=== PATIENT | female | born 1975 | race Caucasian/White ===

== ENCOUNTER 2018-11-15 22:05 | Emergency (ER) | payer SELFPAY ==
[2018-11-15] MEDS ORDERED: IBUPROFEN PO ONE (23:37)
[2018-11-15] MEDS ORDERED: ZOFRAN ODT PO ONE (23:37)
[2018-11-15 23:39] LABS: Basophils # (Auto) 0.1 K/mm3 (0.0-0.1); Basophils % (Auto) 0.5 % (0.0-1.8); Eosinophils # (Auto) 0.8 K/mm3 (0.0-0.4); Eosinophils % (Auto) 5.2 % (0.0-4.3); Hematocrit 38.7 % (30.3-42.9); Hemoglobin 12.2 gm/dl (10.1-14.3); Lymphocytes # (Auto) 2.3 K/mm3 (1.2-5.4); Lymphocytes % (Auto) 13.8 % (13.4-35.0); Mean Corpuscular HGB Conc 32 % (30-34); Mean Corpuscular Volume 82 fl (79-97); Monocytes # (Auto) 0.7 K/mm3 (0.0-0.8); Monocytes % (Auto) 4.4 % (0.0-7.3); Platelet Count 275 K/mm3 (140-440); Red Blood Count 4.73 M/mm3 (3.65-5.03); Red Cell Distribution Width 15.6 % (13.2-15.2)
--- NOTE | 2018-11-15 23:40 | Emergency Department Report ---
ED General Adult HPI - General Chief complaint: Hypoglycemia Stated complaint: COLD SX LOW BLOOD GLUCOSE Time Seen by Provider: 11/15/18 23:13 Source: patient Mode of arrival: Ambulatory Limitations: Language Barrier - History of Present Illness Initial comments: Mrs. Mathews is a 43 yo female with hx of DM who presents with headache, generalized abdominal pain, chills, vomiting for one day. Moderate symptoms. +sick contacts. -: Gradual, days(s) (1) Location: head Severity scale (0 -10): 10 Quality: aching, other (cramping) Improves with: none Worsens with: none Associated Symptoms: nausea/vomiting - Related Data Previous Rx's Medication Instructions Recorded Last Taken Type Ondansetron [Zofran Odt] 4 mg PO Q8HR PRN #6 tab.rapdis 11/16/18 Unknown Rx Oseltamivir Phosphate [Tamiflu] 75 mg PO BID 5 Days #10 capsule 11/16/18 Unknown Rx Allergies Allergy/AdvReac Type Severity Reaction Status Date / Time No Known Allergies Allergy Unverified 11/15/18 22:08 ED Review of Systems ROS: Stated complaint: COLD SX LOW BLOOD GLUCOSE Other details as noted in HPI Comment: All other systems reviewed and negative Constitutional: chills, fever, malaise Gastrointestinal: nausea, vomiting ED Past Medical Hx - Past Medical History Previous Medical History?: Yes Hx Diabetes: Yes - Surgical History Past Surgical History?: No - Social History Smoking Status: Never Smoker Substance Use Type: None - Medications Home Medications: Home Medications Medication Instructions Recorded Confirmed Last Taken Type Ondansetron [Zofran Odt] 4 mg PO Q8HR PRN #6 tab.rapdis 11/16/18 Unknown Rx Oseltamivir Phosphate [Tamiflu] 75 mg PO BID 5 Days #10 capsule 11/16/18 Unknown Rx ED Physical Exam - General Limitations: Language Barrier (family member niece provided interpretation) General appearance: alert, in no apparent distress - Head Head exam: Present: atraumatic, normocephalic - Eye Eye exam: Present: normal appearance - ENT ENT exam: Present: mucous membranes moist - Neck Neck exam: Present: normal inspection, full ROM. Absent: tenderness, meningismus - Respiratory Respiratory exam: Present: normal lung sounds bilaterally. Absent: respiratory distress, wheezes, rales, rhonchi - Cardiovascular Cardiovascular Exam: Present: regular rate, normal rhythm, normal heart sounds. Absent: systolic murmur, diastolic murmur, rubs, gallop - GI/Abdominal GI/Abdominal exam: Present: soft, normal bowel sounds. Absent: distended, tenderness, guarding, rebound - Extremities Exam Extremities exam: Present: normal inspection - Back Exam Back exam: Present: normal inspection - Neurological Exam Neurological exam: Present: alert, oriented X3 - Psychiatric Psychiatric exam: Present: normal affect, normal mood - Skin Skin exam: Present: warm, dry, intact, normal color. Absent: rash ED Course Vital Signs 11/15/18 11/15/18 11/16/18 22:14 23:32 00:00 Temperature 97.7 F 98.3 F Pulse Rate 81 82 Respiratory 16 19 Rate Blood Pressure 154/94 145/93 Blood Pressure 147/82 [Left] O2 Sat by Pulse 100 99 99 Oximetry 11/16/18 11/16/18 01:00 02:00 Temperature Pulse Rate Respiratory Rate Blood Pressure 120/73 113/73 Blood Pressure [Left] O2 Sat by Pulse 99 98 Oximetry ED Medical Decision Making - Lab Data Result diagrams: 11/15/18 23:21 11/15/18 23:21 - Radiology Data Radiology results: report reviewed CT head without acute process CT abdomen and pelvis 4 cm right-sided adnexal mass likely ovarian cyst - Medical Decision Making Clinical diagnosis: Influenza, Elevated white count prompted further evaluation. CT abdomen and pelvis unremarkable for right adnexal mass likely sepsis given referral to [facility] Prescribed Tamiflu Zofran Critical care attestation.: If time is entered above; I have spent that time in minutes in the direct care of this critically ill patient, excluding procedure time. ED Disposition Clinical Impression: Influenza, Ovarian cyst Disposition: - TO HOME OR SELFCARE Is pt being admited?: No Does the pt Need Aspirin: No Condition: Stable Instructions: Influenza (ED), Ovarian Cyst (ED) Prescriptions: Ondansetron [Zofran Odt] 4 mg PO Q8HR PRN #6 tab.rapdis PRN Reason: nausea/vomiting Oseltamivir Phosphate [Tamiflu] 75 mg PO BID 5 Days #10 capsule Referrals: KATE ANGELO MD [Staff Physician] - 3-5 Days Print Language: BENGALI
[2018-11-16 00:05] LABS: Alanine Aminotransferase 19 units/L (7-56); BUN/Creatinine Ratio 17; Blood Urea Nitrogen 10 mg/dL (7-17); Calcium 9.3 mg/dL (8.4-10.2); Hemolysis Index 4
[2018-11-16] MEDS ORDERED: TAMIFLU PO ONE (00:07)
[2018-11-16] MEDS ORDERED: MORPHINE IV ONE (00:13)
[2018-11-16] MEDS ORDERED: NACL 0.9% 1000 ML 1,000 ML IV ONE (00:13)
[2018-11-16] MEDS: ZOFRAN IV ONE (00:27)
[2018-11-16 00:28] LABS: Bilirubin,Urine NEG (Negative); Blood,Urine SM (Negative); Color,Urine Yellow (Yellow); Mucus,Urine FEW /HPF; Urobilinogen,Urine < 2.0 mg/dL (<2.0)
--- NOTE | 2018-11-16 03:05 | Cat Scan Report ---
FINAL REPORT PROCEDURE: CT HEAD/BRAIN WO CON TECHNIQUE: Computerized tomography of the head was performed without contrast material. HISTORY: headache COMPARISON: No prior studies are available for comparison. FINDINGS: Skull and scalp: Normal. Paranasal sinuses: Normal. Ventricles and subarachnoid spaces: Normal. Cerebrum: No evidence of hemorrhage, acute infarction or mass . Cerebellum and brainstem: No evidence of hemorrhage, acute infarction or mass. Vasculature: Normal. Comments: None. IMPRESSION: Normal Examination
--- NOTE | 2018-11-16 03:07 | Cat Scan Report ---
FINAL REPORT PROCEDURE: CT ABDOMEN PELVIS W CON TECHNIQUE: Computerized axial tomography of the abdomen and pelvis was performed after the IV inject ion of iodinated nonionic contrast. HISTORY: abdominal pain COMPARISON: No prior studies are available for comparison. FINDINGS: Visualized lower thorax: No significant abnormality. Liver: Normal size and attenuation. Spleen: Normal size and attenuation. Gallbladder and biliary system: Normal. Pancreas: Normal. Adrenals: Normal. Kidneys: Normal. GI tract: There is no bowel obstruction, colitis or enteritis. The appendix is normal.. Lymph nodes and mesentery: Normal. Vasculature: Normal. Bladder: Normal. Reproductive organs: Uterus is unremarkable. There is a 4.2 centimeter mass in the right adnexal donna on which could be enlarged ovary with hemorrhagic cysts. Further evaluation with ultrasound may be he lpful if indicated.. Peritoneum: There is no ascites or free air, abscess or adenopathy.. Musculoskeletal structures: No significant abnormality. Other: None. IMPRESSION: There is no bowel obstruction, colitis or enteritis. The appendix is normal.. Uterus is unremarkable. There is a 4.2 centimeter mass in the right adnexal region which could be enl arged ovary with hemorrhagic cysts. Further evaluation with ultrasound may be helpful if indicated.. There is no ascites or free air, abscess or adenopathy..
[2018-11-16 03:32] VITALS: BP 113/73
== END 2018-11-16 04:08 | disposition home or self-care (01) ==
LOC: ED 22:05
DX: J11.1 Influenza due to unidentified influenza virus with other respiratory manifestations (principal); N83.209 Unspecified ovarian cyst, unspecified side; E11.9 Type 2 diabetes mellitus without complications
CPT/HCPCS: 36415; 70450; 74177; 80053; 81001; 82962; 83690; 84702; 85025; 96361; 96374; 96375; 99284; J2270; J2405; J7030; Q9967

== ENCOUNTER 2019-09-11 16:18 | Emergency (ER) | payer SELFPAY ==
--- NOTE | 2019-09-11 16:35 | Emergency Department Report ---
Blank Doc - Documentation Documentation: 44-year-old female that presents with flank pain with hematuria and dysuria. This initial assessment/diagnostic orders/clinical plan/treatment(s) is/are subject to change based on patient's health status, clinical progression and re- assessment by fellow clinical providers in the ED. Further treatment and workup at subsequent clinical providers discretion. Patient/guardians urged not to elope from the ED as their condition may be serious if not clinically assessed and managed. Initial orders include: 1- Patient sent to [facility] for further evaluation and treatment 2- UA
[2019-09-11 16:37] VITALS: BP 122/67
[2019-09-11 17:10] LABS: HCG Qualitative,Urine Positive (Negative)
[2019-09-11 17:26] LABS: Bacteria,Urine 1+ /HPF (Negative); Bilirubin,Urine NEG (Negative); Blood,Urine MOD (Negative); Color,Urine Straw (Yellow); Mucus,Urine FEW /HPF; Protein,Urine <15 mg/dL mg/dL (Negative); Urobilinogen,Urine < 2.0 mg/dL (<2.0)
--- NOTE | 2019-09-11 17:55 | Emergency Department Report ---
ED Female HPI - General Chief complaint: Urogenital-Female Stated complaint: LOWER BACK PAIN/FEVER Time Seen by Provider: 09/11/19 16:33 Source: patient, family Mode of arrival: Ambulatory Limitations: Language Barrier (speaks Tajik) - History of Present Illness Initial comments: Porter Head present This is a 44 year old patient that does not speak Botswanan therefore truss designer present. She reports that she has painful urination and with bloody urine 3 days. She also reports that she has bilateral lower back pain. She reports chills but did not take her temperature. Denies any nausea or vomiting. Last menstrual period was in August per patient 08/18/2019. Denies any abdominal pain. Denies any shortness of breath or chest pain. Denies any swelling to her legs. Pain is 10 out of 10 to lower back and achy. It is constant and all eviated with rest but worse with movement. Denies taking any medication. Denies any vaginal discharge or concern for STDs. MD Complaint: dysuria, other (lateral lower back pain and bloody urine 3 days. ) Onset/Timin -: days(s) Location: other (back, bilateral) Radiation: non-radiating Severity: severe Severity scale (0 -10): 10 Quality: aching Consistency: constant Improves with: other (rest) Worsens with: movement Are you Now?: No Last Menstrual Period: 08/18/19 EDC: 05/24/20 Associated Symptoms: fever/chills, dysuria, hematuria. denies: vaginal discharge, vaginal bleeding, abdominal pain, nausea/vomiting, headaches, loss of appetite, rash, seizure, shortness of breath, syncope, weakness - Related Data Sexually active: Yes Previous Rx's Medication Instructions Recorded Last Taken Type Ondansetron [Zofran Odt] 4 mg PO Q8HR PRN #6 tab.rapdis 11/16/18 Unknown Rx Oseltamivir Phosphate [Tamiflu] 75 mg PO BID 5 Days #10 capsule 11/16/18 Unknown Rx Acetaminophen [Acetaminophen TAB] 500 mg PO Q8H PRN #12 tablet 09/11/19 Unknown Rx Nitrofurantoin [place]/M-Cryst 100 mg PO Q12HR 7 Days #14 capsule 09/11/19 Unknown Rx [Macrobid CAP] Vit-Fe Fumar-FA [ 1 tab PO QDAY #30 tablet 09/11/19 Unknown Rx Vitamin] Allergies Allergy/AdvReac Type Severity Reaction Status Date / Time No Known Allergies Allergy Unverified 11/15/18 22:08 ED Review of Systems ROS: Stated complaint: LOWER BACK PAIN/FEVER Other details as noted in HPI Constitutional: chills Eyes: denies: eye discharge Respiratory: denies: cough, shortness of breath, wheezing Cardiovascular: denies: chest pain, palpitations, dyspnea on exertion, edema, syncope Gastrointestinal: denies: nausea, vomiting, hematemesis, hematochezia Genitourinary: dysuria, hematuria. denies: urgency, frequency, discharge, a bnormal menses, dyspareunia Musculoskeletal: back pain. denies: joint swelling, myalgia Skin: denies: rash Neurological: denies: headache, numbness, vertigo ED Past Medical Hx - Past Medical History Previous Medical History?: Yes Hx Diabetes: Yes - Surgical History Past Surgical History?: Yes Additional Surgical History: x 1 - Family History Family history: diabetes, hypertension - Social History Smoking Status: Never Smoker Substance Use Type: None - Medications Home Medications: Home Medications Medication Instructions Recorded Confirmed Last Taken Type Ondansetron [Zofran Odt] 4 mg PO Q8HR PRN #6 tab.rapdis 11/16/18 Unknown Rx Oseltamivir Phosphate [Tamiflu] 75 mg PO BID 5 Days #10 capsule 11/16/18 Unknown Rx Acetaminophen [Acetaminophen TAB] 500 mg PO Q8H PRN #12 tablet 09/11/19 Unknown Rx Nitrofurantoin [place]/M-Cryst 100 mg PO Q12HR 7 Days #14 capsule 09/11/19 Unknown Rx [Macrobid CAP] Vit-Fe Fumar-FA [ 1 tab PO QDAY #30 tablet 09/11/19 Unknown Rx Vitamin] ED Physical Exam - General Limitations: No Limitations General appearance: alert, in no apparent distress - Head Head exam: Present: atraumatic, normocephalic - Eye Eye exam: Present: normal appearance, PERRL, EOMI Pupils: Present: normal accommodation - ENT ENT exam: Present: normal exam, normal orophraynx, mucous membranes moist - Neck Neck exam: Present: normal inspection, full ROM. Absent: tenderness, ly mphadenopathy - Respiratory Respiratory exam: Present: normal lung sounds bilaterally. Absent: respiratory distress, chest wall tenderness - Cardiovascular Cardiovascular Exam: Present: regular rate, normal rhythm, normal heart sounds. Absent: systolic murmur, diastolic murmur - GI/Abdominal GI/Abdominal exam: Present: soft, normal bowel sounds. Absent: distended, tenderness, organomegaly, mass, bruit, pulsatile mass, hernia - External exam: Present: normal external exam. Absent: erythema, swelling, lesions, lacerations, ecchymosis, bleeding - Extremities Exam Extremities exam: Present: normal inspection, full ROM, normal capillary refill, other (No cce. + 2 pulses in all extremities, no neurovascular compromise). Absent: tenderness, pedal edema, joint swelling, calf tenderness - Back Exam Back exam: Present: normal inspection, full ROM, other (Ambulates without any difficulties). Absent: tenderness, CVA tenderness (R), CVA tenderness (L), mus samm spasm, paraspinal tenderness, vertebral tenderness, rash noted - Neurological Exam Neurological exam: Present: alert, oriented X3, normal gait - Psychiatric Psychiatric exam: Present: normal affect, normal mood - Skin Skin exam: Present: warm, dry, intact, normal color. Absent: rash ED Course Vital Signs 09/11/19 16:36 Temperature 98.3 F Pulse Rate 95 H Respiratory 18 Rate Blood Pressure 122/67 O2 Sat by Pulse 100 Oximetry - Reevaluation(s) Reevaluation #1: Porter Head present 09/11/19 19:55 Patient stable throughout ED course. I spoke with Dr. Howell regarding patient diabetic status and that she has glycosuria and her serum glucose is 283. Okay for patient to get insulin. Patient received insulin 4 units subcutaneous and she was advised via truss designer. She also receive Rocephin 1 g IM to cover UTI and will be discharged home at antibiotic, vitamin. It is agreed upon the patient will not take metformin during and that she needs to stop and she is in agreement. I explained to patient her lab results, status, ultrasound report, diagnosis of urinary tract infection, glucose in her urine and elevated blood sugar and she voiced understanding. I also discussed with her that she needs to increase her water intake and decrease starchy food and sweets. I instructed her that she needs to go to her clinic for primary care for management of diabetes and needs to start on insulin rather than metformin and she voiced understanding. Patient had no reaction from Rocephin IM. ED Medical Decision Making - Lab Data Result diagrams: 09/11/19 18:00 09/11/19 18:00 Lab Results 09/11/19 09/11/19 09/11/19 Range/Units 16:50 18:00 18:00 WBC 12.4 H (4.5-11.0) K/mm3 RBC 5.03 (3.65-5.03) M/mm3 Hgb 13.5 (10.1-14.3) gm/dl Hct 41.4 (30.3-42.9) % MCV 82 (79-97) fl MCH 27 L (28-32) pg MCHC 33 (30-34) % RDW 14.9 (13.2-15.2) % Plt Count 283 (140-440) K/mm3 Lymph % (Auto) 21.4 (13.4-35.0) % [place] % (Auto) 6.0 (0.0-7.3) % Eos % (Auto) 8.8 H (0.0-4.3) % Baso % (Auto) 0.4 (0.0-1.8) % Lymph # 2.7 (1.2-5.4) K/mm3 [place] # 0.8 (0.0-0.8) K/mm3 Eos # 1.1 H (0.0-0.4) K/mm3 Baso # 0.0 (0.0-0.1) K/mm3 Seg Neutrophils % 63.4 (40.0-70.0) % Seg Neutrophils # 7.9 H (1.8-7.7) K/mm3 Sodium 136 L (137-145) mmol/L Potassium 4.1 (3.6-5.0) mmol/L Chloride 100.1 (98-107) mmol/L Carbon Dioxide 19 L (22-30) mmol/L Anion Gap 21 mmol/L BUN 7 (7-17) mg/dL Creatinine 0.6 L (0.7-1.2) mg/dL Estimated GFR > 60 ml/min BUN/Creatinine Ratio 12 % Glucose 283 H (65-100) mg/dL Calcium 9.7 (8.4-10.2) mg/dL Urine Color Straw (Yellow) Urine Turbidity Slightly-cloudy (Clear) Urine pH 6.0 (5.0-7.0) Ur Specific [place] 1.008 (1.003-1.030) Urine Protein <15 mg/dl (Negative) mg/dL Urine Glucose (UA) >=500 (Negative) mg/dL Urine Ketones Tr (Negative) mg/dL Urine Blood Mod (Negative) Urine Nitrite Neg (Negative) Ur Reducing Substances Not Reportable Urine Bilirubin Neg (Negative) Urine Ictotest Not Reportable Urine Urobilinogen < 2.0 (<2.0) mg/dL Ur Leukocyte Esterase Lg (Negative) Urine WBC (Auto) 16.0 H (0.0-6.0) /HPF Urine RBC (Auto) 7.0 (0.0-6.0) /HPF U Epithel Cells (Auto) 7.0 (0-13.0) /HPF Urine Bacteria (Auto) 1+ (Negative) /HPF Urine Mucus Few /HPF Urine HCG, Qual Positive A (Negative) Blood Type Antibody Screen 09/11/19 Range/Units 18:00 WBC (4.5-11.0) K/mm3 RBC (3.65-5.03) M/mm3 Hgb (10.1-14.3) gm/dl Hct (30.3-42.9) % MCV (79-97) fl MCH (28-32) pg MCHC (30-34) % RDW (13.2-15.2) % Plt Count (140-440) K/mm3 Lymph % (Auto) (13.4-35.0) % [place] % (Auto) (0.0-7.3) % Eos % (Auto) (0.0-4.3) % Baso % (Auto) (0.0-1.8) % Lymph # (1.2-5.4) K/mm3 [place] # (0.0-0.8) K/mm3 Eos # (0.0-0.4) K/mm3 Baso # (0.0-0.1) K/mm3 Seg Neutrophils % (40.0-70.0) % Seg Neutrophils # (1.8-7.7) K/mm3 Sodium (137-145) mmol/L Potassium (3.6-5.0) mmol/L Chloride (98-107) mmol/L Carbon Dioxide (22-30) mmol/L Anion Gap mmol/L BUN (7-17) mg/dL Creatinine (0.7-1.2) mg/dL Estimated GFR ml/min BUN/Creatinine Ratio % Glucose (65-100) mg/dL Calcium (8.4-10.2) mg/dL Urine Color (Yellow) Urine Turbidity (Clear) Urine pH (5.0-7.0) Ur Specific [place] (1.003-1.030) Urine Protein (Negative) mg/dL Urine Glucose (UA) (Negative) mg/dL Urine Ketones (Negative) mg/dL Urine Blood (Negative) Urine Nitrite (Negative) Ur Reducing Substances Urine Bilirubin (Negative) Urine Ictotest Urine Urobilinogen (<2.0) mg/dL Ur Leukocyte Esterase (Negative) Urine WBC (Auto) (0.0-6.0) /HPF Urine RBC (Auto) (0.0-6.0) /HPF U Epithel Cells (Auto) (0-13.0) /HPF Urine Bacteria (Auto) (Negative) /HPF Urine Mucus /HPF Urine HCG, Qual (Negative) Blood Type O POSITIVE Antibody Screen Negative Urine culture sent - Radiology Data Radiology results: report reviewed Ultrasound OB transvaginal and transabdominal dictated by radiologist and report reviewed by myself. Please see report below Findings [facility] [address] [place] [address] Ultrasound Report Signed Patient: HOLLIE COULTER MR#: [id number] : 1975 Acct:[id number] Age/Sex: 44 / F ADM Date: 09/11/19 Loc: ED Attending Dr: Ordering Physician: JEMAL HOLGUIN Date of Service: 09/11/19 Procedure(s): US OB <= 14 weeks fetus Accession Number(s): [id number] cc: JEMAL HOLGUIN US OB <= 14 weeks fetus, US OB transvaginal INDICATION: with abdominal pain. TECHNIQUE: Transvaginal OB ultrasound. COMPARISON: None available. FINDINGS: There is a single living intrauterine with crown-rump length of 13 mm that corresponds to sonographic gestational age of 7 weeks and 4 days. heart rate measures 161 bpm. Both ovaries appear normal. IMPRESSION: 1. Living intrauterine with sonographic gestational age of 7 weeks, 4 days. Signer Name: Marty Baron MD Signed: 09/11/2019 6:49 PM Workstation Name: [id number] Transcribed By: RICHARD Dictated By: Marty Baron MD Electronically Authenticated By: Marty Baron MD Signed Date/Time: 09/11/191848 DD/ 47 TD/TT: Findings [facility] [address] [place] [address] Ultrasound Report Signed Patient: HOLLIE COULTER MR#: [id number] : 1975 Acct:[id number] Age/Sex: 44 / F ADM Date: 09/11/19 Loc: ED Attending Dr: Ordering Physician: JEMAL HOLGUIN Date of Service: 09/11/19 Procedure(s): US OB transvaginal Accession Number(s): [id number] cc: JEMAL HOLGUIN US OB <= 14 weeks fetus, US OB transvaginal INDICATION: with abdominal pain. TECHNIQUE: Transvaginal OB ultrasound. COMPARISON: None available. FINDINGS: There is a single living intrauterine with crown-rump length of 13 mm that corresponds to sonographic gestational age of 7 weeks and 4 days. heart rate measures 161 bpm. Both ovaries appear normal. IMPRESSION: 1. Living intrauterine with sonographic gestational age of 7 weeks, 4 days. Signer Name: Marty Baron MD Signed: 09/11/2019 6:49 PM Workstation Name: [id number] Transcribed By: RICHARD Dictated By: Marty Baron MD Electronically Authenticated By: Marty Baron MD Signed Date/Time: 09/11/191848 DD/ 47 TD/TT: - Medical Decision Making Porter Head present. Initially I spoke with Dr. Loaiza regarding patient presentation and physical findings and prior to discharge I spoke with Dr. Geoff Howell with attending physician in emergency room regarding patient's labs, diagnosis, diabetic status and he agrees the patient can be discharged home to follow up with clinic tomorrow for them to change her metformin to insulin. Patient received 4 units of insulin and emergency room to cover hyperglycemia in type 2 diabetes and Rocephin 1 g IM to cover UTI. Patient is aware that she needs a note to her primary care clinic tomorrow as she says she can walk in and let her doctor knows that she is and that she needs to be started in a different medication for her as she cannot be on metformin during and she voiced understanding via truss designer. She is aware that she needs to increase her fluid intake and that she has a urinary tract infection that she got 1 g of Rocephin in the emergency room IM and will be placed on Macrobid by mouth and she is aware that she needs to take this medication. She also is aware that she can take Tylenol for pain and/or fever and that if she develops increased pain, fever, nausea and vomiting, abdominal pain, vaginal bleed and that she is to return to the emergency room ELLIS and she voiced understanding via truss designer. She is aware that she is 7 weeks and 4 days IUP with heart rate stable. She voiced understanding via truss designer. Patient is stable and in no acute distress at present. Discharged home a prescription for Macrobid and Tylenol and she is also aware that she needs to call [facility] office tomorrow to schedule an appointment which is likely cycle was of call for visit. She was given prescription for vitamin. She also voices understanding of need to take medication. Patient is currently stable and she is in no pain at present. Discharged home with her in stable condition to follow up with primary care to manage diabetes in and [facility] for care. I gave her information on how to apply for Medicaid and she voices understanding. - Differential Diagnosis pyelonephritis, ectopic , fibroids, ovarian cysts, UTI Critical care attestation.: If time is entered above; I have spent that time in minutes in the direct care of this critically ill patient, excluding procedure time. ED Disposition Clinical Impression: Acute cystitis during in first trimester, Glycosuria during , not delivered, Back pain during in first trimester, Hyperglycemia in Disposition: DC-01 TO HOME OR SELFCARE Is pt being admited?: No Does the pt Need Aspirin: No Condition: Stable Instructions: Diabetic Hyperglycemia (ED), Urinary Tract Infection in Women (ED), Dysuria (ED), How to Check Your Blood Sugar (ED), Vitamins (By mouth), (ED), Meal Planning with Diabetes Exchanges (DC) Additional Instructions: Please follow-up with your primary care clinic to manage type 2 diabetes and . Stop taking metformin Please keep hydrated with at least 2-3 L of water daily. Please follow diabetic diet Read discharge instruction paperwork and its entirety and take ultrasound report along with discharge information with you to primary care and [facility] visit Take Macrobid for urinary tract infection Tylenol for pain or fever Start taking vitamin If you develop vaginal bleeding, abdominal or back pain, increased nausea vomiting , fever or chills, please return to emergency room therapy Nathalia un seguimiento con fontana clnica de atencin primaria para controlar la diabetes tipo 2 y el embarazo. Deje de eliot metformina Mantngase hidratado con al menos 2-3 L de agua al da. Por favor, siga la dieta para diabticos Mellissa la documentacin de instrucciones de azalea y fontana totalidad y lleve el informe de ultrasonido junto con la informacin de azalea con usted a la atencin primaria y a la visita de obstetra / gineclogo [place] Macrobid para la infeccin del tracto urinario Tylenol para dolor o fiebre Comience a eliot vitamina Si desarrolla sangrado vaginal, dolor abdominal o de espalda, aumento de nuseas, vmitos, fiebre o escalofros, regrese a la antonio de emergencias. Referrals: please follow-up with your, primary care physician [Other] - 09/12/19 BRIAN VICK MD [Staff Physician] - 09/13/19 Forms: Accompanied Note, Work/School Release Form(ED) Print Language: ICELANDIC
[2019-09-11 18:22] LABS: Basophils % (Auto) 0.4 % (0.0-1.8); Eosinophils # (Auto) 1.1 K/mm3 (0.0-0.4); Eosinophils % (Auto) 8.8 % (0.0-4.3); Hematocrit 41.4 % (30.3-42.9); Hemoglobin 13.5 gm/dl (10.1-14.3); Lymphocytes # (Auto) 2.7 K/mm3 (1.2-5.4); Lymphocytes % (Auto) 21.4 % (13.4-35.0); Mean Corpuscular HGB Conc 33 % (30-34); Mean Corpuscular Volume 82 fl (79-97); Monocytes # (Auto) 0.8 K/mm3 (0.0-0.8); Platelet Count 283 K/mm3 (140-440); Red Blood Count 5.03 M/mm3 (3.65-5.03); Red Cell Distribution Width 14.9 % (13.2-15.2)
[2019-09-11 18:46] LABS: BUN/Creatinine Ratio 12; Blood Urea Nitrogen 7 mg/dL (7-17); Calcium 9.7 mg/dL (8.4-10.2); Hemolysis Index 3
--- NOTE | 2019-09-11 18:53 | Ultrasound Report ---
US OB <= 14 weeks fetus, US OB transvaginal INDICATION: with abdominal pain. TECHNIQUE: Transvaginal OB ultrasound. COMPARISON: None available. FINDINGS: There is a single living intrauterine with crown-rump length of 13 mm that corresponds to s onographic gestational age of 7 weeks and 4 days. heart rate measures 161 bpm. Both ovaries appear normal. IMPRESSION: 1. Living intrauterine with sonographic gestational age of 7 weeks, 4 days. Signer Name: Marty Baron MD Signed: 09/11/2019 6:49 PM Workstation Name: [id number]
[2019-09-11] MEDS ORDERED: INSULIN REGULAR, HUMAN 100 UNITS/1 ML SUB-Q ONE (19:27)
[2019-09-11] MEDS ORDERED: LIDOCAINE-MPF (1%) 10 MG/1 ML VIAL 5 ML INFILTRATI ONE (19:27)
== END 2019-09-11 20:53 | disposition home or self-care (01) ==
LOC: ED 16:18
DX: O23.11 Infections of bladder in pregnancy, first trimester (principal); O26.891 Other specified pregnancy related conditions, first trimester; R81 Glycosuria; M54.5 Low back pain; O24.111 Pre-existing type 2 diabetes mellitus, in pregnancy, first trimester; Z98.890 Other specified postprocedural states; Z79.899 Other long term (current) drug therapy
CPT/HCPCS: 36415; 76801; 76817; 80048; 81001; 81025; 84702; 85025; 86850; 86900; 86901; 87076; 87086; 87186; 96372; 99284; J0696; J1815

== ENCOUNTER 2019-12-09 19:40 | Emergency (ER) | payer SELFPAY ==
--- NOTE | 2019-12-09 21:41 | Event Note ---
ED Screening Note ED Screening Note: Pt presents with lower back discomfort +dysuria +vaginal discharge no abd pain no vaginal bleeding PMHx DM no allergies to meds LNMP 10/07/19 /P:3/A:0 she has seen OB for this This initial assessment/diagnostic orders/clinical plan/treatment(s) is/are subject to change based on patients health status, clinical progression and re- assessment by fellow clinical providers in the ED. Further treatment and workup at subsequent clinical providers discretion. Patient/guardian urged not to elope from the ED as their condition may be serious if not clinically assessed and managed. Initial orders include: ua
[2019-12-09 21:43] VITALS: BP 140/77
[2019-12-09] MEDS ORDERED: SODIUM CHLORIDE 0.9% 1000 ML 1,000 ML IV ONE (22:01)
--- NOTE | 2019-12-09 22:04 | Emergency Department Report ---
ED HPI - General Chief complaint: Abdominal Pain Stated complaint: 16 WEEKS ABDOMINAL PAIN Time Seen by Provider: 12/09/19 21:36 Source: patient, family Mode of arrival: Ambulatory Limitations: Language Barrier - History of Present Illness Initial comments: This is a 44-year-old currently about approximately 16 weeks gestation who presents the ED complaining of left-sided flank pain times a couple of days. Patient states she sees [facility]OD ST[facility] MANAGER regularly cannot recall name of office. Patient denies fever/chills/nausea vomiting/dysuria/vaginal bleed/abdominal pain MD Complaint: abdominal pain Location: flank (Right) - Related Data Previous Rx's Medication Instructions Recorded Last Taken Type Ondansetron [Zofran Odt] 4 mg PO Q8HR PRN #6 tab.rapdis 11/16/18 Unknown Rx Oseltamivir Phosphate [Tamiflu] 75 mg PO BID 5 Days #10 capsule 11/16/18 Unknown Rx Acetaminophen [Acetaminophen TAB] 500 mg PO Q8H PRN #12 tablet 09/11/19 Unknown Rx Vit-Fe Fumar-FA [ 1 tab PO QDAY #30 tablet 09/11/19 Unknown Rx Vitamin] Nitrofurantoin [place]/M-Cryst 100 mg PO Q12HR 7 Days #14 capsule 12/09/19 Unknown Rx [Macrobid CAP] Allergies Allergy/AdvReac Type Severity Reaction Status Date / Time No Known Allergies Allergy Unverified 11/15/18 22:08 ED Review of Systems ROS: Stated complaint: 16 WEEKS ABDOMINAL PAIN Other details as noted in HPI Comment: All other systems reviewed and negative ED Past Medical Hx - Past Medical History Previous Medical History?: Yes Hx Diabetes: Yes - Surgical History Past Surgical History?: Yes Additional Surgical History: x 1 - Social History Smoking Status: Never Smoker Substance Use Type: None - Medications Home Medications: Home Medications Medication Instructions Recorded Confirmed Last Taken Type Ondansetron [Zofran Odt] 4 mg PO Q8HR PRN #6 tab.rapdis 11/16/18 Unknown Rx Oseltamivir Phosphate [Tamiflu] 75 mg PO BID 5 Days #10 capsule 11/16/18 Unknown Rx Acetaminophen [Acetaminophen TAB] 500 mg PO Q8H PRN #12 tablet 09/11/19 Unknown Rx Vit-Fe Fumar-FA [ 1 tab PO QDAY #30 tablet 09/11/19 Unknown Rx Vitamin] Nitrofurantoin [place]/M-Cryst 100 mg PO Q12HR 7 Days #14 capsule 12/09/19 Unknown Rx [Macrobid CAP] ED Physical Exam - General Limitations: Language Barrier General appearance: alert, in no apparent distress - Head Head exam: Present: atraumatic, normocephalic - Eye Eye exam: Present: normal appearance - ENT ENT exam: Present: mucous membranes moist - Neck Neck exam: Present: normal inspection - Respiratory Respiratory exam: Present: normal lung sounds bilaterally. Absent: respiratory distress - Cardiovascular Cardiovascular Exam: Present: regular rate, normal rhythm. Absent: systolic murmur, diastolic murmur, rubs, gallop - GI/Abdominal GI/Abdominal exam: Present: soft, normal bowel sounds - Extremities Exam Extremities exam: Present: normal inspection - Back Exam Back exam: Present: normal inspection, full ROM. Absent: tenderness, CVA tenderness (R), CVA tenderness (L) - Neurological Exam Neurological exam: Present: alert, oriented X3, normal gait - Psychiatric Psychiatric exam: Present: normal affect, normal mood - Skin Skin exam: Present: warm, dry, intact, normal color. Absent: rash ED Course Vital Signs 12/09/19 21:41 Temperature 98.9 F Pulse Rate 87 Respiratory 18 Rate Blood Pressure 140/77 O2 Sat by Pulse 99 Oximetry ED Medical Decision Making - Lab Data Result diagrams: 12/09/19 21:56 12/09/19 21:56 - Medical Decision Making This is a 44-year-old female who presents with left-sided flank mass may be secondary to mild UTI Will treat with Macrobid. All other labs within normal limits. Patient had a nontender abdomen. Bedside Doppler obtained heartbeat at 145. Discussed with patient to take antibiotics as prescribed and follow-up with her FOOD STAND MANAGER in 2 days. Vital signs are normal patient is in no acute distress. Critical care attestation.: If time is entered above; I have spent that time in minutes in the direct care of this critically ill patient, excluding procedure time. ED Disposition Clinical Impression: Flank pain, Acute cystitis during Disposition: DC- TO HOME OR SELFCARE Is pt being admited?: No Does the pt Need Aspirin: No Condition: Stable Instructions: Abdominal Pain (ED), Urinary Tract Infection in Women (ED) Additional Instructions: Make sure to follow up with the HEEL MOLDER as discussed. Take all your medications as you've been prescribed. If you have any worsening symptoms or develop new symptoms please return to ED immediately. Prescriptions: Nitrofurantoin [place]/M-Cryst [Macrobid CAP] 100 mg PO Q12HR 7 Days #14 capsule Referrals: PRIMARY CARE, [Primary Care Provider] - 3-5 Days [facility] [Provider Group] - 3-5 Days Forms: Accompanied Note, Work/School Release Form(ED) Time of Disposition: 23:59
[2019-12-09 22:30] LABS: Basophils # (Auto) 0.1 K/mm3 (0.0-0.1); Basophils % (Auto) 0.5 % (0.0-1.8); Eosinophils % (Auto) 7.9 % (0.0-4.3); Hematocrit 36.8 % (30.3-42.9); Lymphocytes # (Auto) 2.5 K/mm3 (1.2-5.4); Lymphocytes % (Auto) 19.9 % (13.4-35.0); Mean Corpuscular HGB Conc 35 % (30-34); Mean Corpuscular Volume 84 fl (79-97); Monocytes # (Auto) 0.6 K/mm3 (0.0-0.8); Platelet Count 268 K/mm3 (140-440); Red Blood Count 4.39 M/mm3 (3.65-5.03); Red Cell Distribution Width 15.4 % (13.2-15.2)
[2019-12-09 22:48] LABS: Bacteria,Urine 1+ /HPF (Negative); Bilirubin,Urine NEG (Negative); Blood,Urine NEG (Negative); Color,Urine Yellow (Yellow); Mucus,Urine FEW /HPF; Protein,Urine <15 mg/dL mg/dL (Negative); Urobilinogen,Urine < 2.0 mg/dL (<2.0)
[2019-12-09 22:54] LABS: Alanine Aminotransferase 18 units/L (7-56); Albumin 3.4 g/dL (3.9-5); BUN/Creatinine Ratio 18; Blood Urea Nitrogen 7 mg/dL (7-17); Hemolysis Index 0
== END 2019-12-10 00:20 | disposition home or self-care (01) ==
LOC: ED 19:40
DX: O23.11 Infections of bladder in pregnancy, first trimester (principal); Z3A.16 16 weeks gestation of pregnancy
CPT/HCPCS: 36415; 80053; 81001; 82962; 85025; 99284; J7030